=== PATIENT | male | born 1955 ===

== ENCOUNTER 2020-03-28 13:07 | Outpatient (CLI) | payer MEDICAID ==
[~2020-03-28] VITALS: Ht 172.7 cm; Wt 73.0 kg
--- NOTE | 2020-03-28 20:14 | Consultation ---
DATE OF CONSULTATION: 03/28/2020 GASTROENTEROLOGY CONSULTATION CONSULTING PHYSICIAN: Dominick Coronado MD. CHIEF COMPLAINT: Referral for screening colonoscopy. PAST MEDICAL HISTORY: Depression. PAST SURGICAL HISTORY: Left shoulder surgery. MEDICATIONS: Please see medication reconciliation list. FAMILY HISTORY: Noncontributory. SOCIAL HISTORY: The patient denies any alcohol use, heavy smoker, quit about three months ago. ALLERGIES: Codeine. REVIEW OF SYSTEMS: A 10-point review of systems reviewed and is negative. PHYSICAL EXAMINATION: VITAL SIGNS: Temperature 97.1, blood pressure 129/70, pulse 70, respirations 20. HEENT: Normocephalic and atraumatic. Sclerae anicteric. NECK: Supple. No evidence of obvious lymphadenopathy. CARDIOVASCULAR: Regular rate and rhythm. Plus S1-S2. LUNGS: Clear to auscultation bilaterally. ABDOMEN: Positive bowel sounds. Soft, nontender. No rebound. No guarding. No peritoneal sign. EXTREMITIES: No cyanosis, no clubbing, no edema. ASSESSMENT AND PLAN: This is a 64-year-old male referred for screening colonoscopy. The patient was given instruction for colonoscopy. Risks and benefits of procedure was explained to him. We will schedule him as soon as authorization is obtained. Dominick Coronado M.D. DR: SANA JOB#: [id number] CC:
== END 2020-03-28 15:07 | disposition home or self-care (01) ==
LOC: PAN 13:07
DX: Z00.00 Encounter for general adult medical examination without abnormal findings (principal); F32.9 Major depressive disorder, single episode, unspecified; Z87.891 Personal history of nicotine dependence; Z88.6 Allergy status to analgesic agent
CPT/HCPCS: 99203